=== PATIENT | male | born 1980 | race American Indian/Alaskan Native ===

== ENCOUNTER 2018-03-04 17:35 | Emergency (ER) | payer BC ==
[2018-03-04 17:53] VITALS: BP 117/71; PULSE 62; RESP 16; TEMP 98.8; O2SAT 99
--- NOTE | 2018-03-04 18:16 | C.PDOC ---
Time Seen by Provider: 03/04/18 17:58 Chief Complaint (Nursing): Abdominal Pain History Per: Patient Onset/Duration Of Symptoms: Days, Intermittent Episodes Current Symptoms Are (Timing): Still Present Severity: Mild Location Of Pain/Discomfort: Other (Left groin area) Quality Of Discomfort: Unable To Describe, "Pain", Other (Bulging) Exacerbating Factors: Upright Position Additional History Per: Prior Records Past Medical History Reviewed: Historical Data, Nursing Documentation, Vital Signs Vital Signs: Last Vital Signs Temp 98.8 F 03/04/18 17:51 Pulse 62 03/04/18 17:51 Resp 16 03/04/18 17:51 BP 117/71 03/04/18 17:51 Pulse Ox 99 03/04/18 17:51 - Medical History PMH: Diverticulitis, Hiatal Hernia Surgical History: Appendectomy, Hernia Repair - [facility] Procedures RESECTION OF APPENDIX, PERCUTANEOUS ENDOSCOPIC APPROACH (07/09/15) Family History: States: Unknown Family Hx - Social History Hx Tobacco Use: No Hx Alcohol Use: No Hx Substance Use: No - Immunization History Hx Tetanus Toxoid Vaccination: No Hx Influenza Vaccination: No Hx Pneumococcal Vaccination: No Review Of Systems Except As Marked, All Systems Reviewed And Found Negative. Constitutional: Negative for: Fever, Weakness Cardiovascular: Negative for: Chest Pain Respiratory: Negative for: Shortness of Breath Gastrointestinal: Negative for: Vomiting, Constipation Genitourinary: Negative for: Dysuria, Scrotal Pain Musculoskeletal: Negative for: Back Pain Skin: Negative for: Rash Neurological: Negative for: Weakness, Numbness Physical Exam - Physical Exam Appears: Non-toxic, No Acute Distress Skin: Normal Color, Warm, Dry, No Rash Head: Atraumatic, Normacephalic Eye(s): bilateral: Normal Inspection, PERRL, EOMI Neck: Normal ROM, Supple Gastrointestinal/Abdominal: Soft, No Tenderness, No Distention, Hernia (left inguinal, easily reducible) Back: No CVA Tenderness Male Genital: No Testicular Tenderness, No Testicular Swelling, No Scrotal Swelling Extremity: Normal ROM Neurological/Psych: Oriented x3, Normal Motor, Normal Sensation ED Course And Treatment O2 Sat by Pulse Oximetry: 99 Pulse Ox Interpretation: Normal Disposition Counseled Patient/Family Regarding: Diagnosis, Need For Followup - Disposition Referrals: Luis Grant MD [Staff Provider] - Disposition: HOME/ ROUTINE Disposition Time: 18:17 Condition: STABLE Additional Instructions: Follow up with a General Surgeon for further evaluation and treatment. Return to the ER if you develop vomiting, hernia is stuck, worsening of symptoms or if you have any other concerns. Instructions: Groin Hernia (DC) Forms: [employer] (Albanian) - Clinical Impression Clinical Impression: Left inguinal hernia
== END 2018-03-04 18:20 | disposition home or self-care (01) ==
LOC: C.ER 17:35
DX: K40.90 Unilateral inguinal hernia, without obstruction or gangrene, not specified as recurrent (principal)

== ENCOUNTER 2018-03-12 14:30 | Emergency (ER) | payer BC ==
--- NOTE | 2018-03-12 15:29 | C.PDOC ---
History Of Present Illness 37 y/o male presents to the ER complaining of right ankle pain which began after he was playing basketball and twisted his right ankle last night. Patient states that he has pain with walking. Patient denies having weakness and numbness. Time Seen by Provider: 03/12/18 14:43 Chief Complaint (Nursing): Lower Extremity Problem/Injury History Per: Patient Onset/Duration Of Symptoms: Days Current Symptoms Are (Timing): Still Present Severity: Moderate - Ankle/Foot Description Of Injury: Twisted (right ankle) Past Medical History Reviewed: Historical Data, Nursing Documentation, Vital Signs Vital Signs: Last Vital Signs Temp 99.1 F 03/12/18 16:08 Pulse 58 L 03/12/18 16:08 Resp 20 03/12/18 16:08 BP 122/74 03/12/18 16:08 Pulse Ox 98 03/12/18 16:08 - Medical History PMH: Diverticulitis, Hiatal Hernia Denies: Chronic Kidney Disease Surgical History: Appendectomy, Hernia Repair - [facility] Procedures RESECTION OF APPENDIX, PERCUTANEOUS ENDOSCOPIC APPROACH (07/09/15) Family History: States: No Known Family Hx - Social History Hx Tobacco Use: No Hx Alcohol Use: No Hx Substance Use: No - Immunization History Hx Tetanus Toxoid Vaccination: No Hx Influenza Vaccination: No Hx Pneumococcal Vaccination: No Review Of Systems Except As Marked, All Systems Reviewed And Found Negative. Musculoskeletal: Positive for: Other (right ankle pain) Neurological: Negative for: Weakness, Numbness Physical Exam - Physical Exam Appears: Non-toxic, No Acute Distress Skin: Normal Color, Warm, Dry Head: Atraumatic, Normacephalic Eye(s): bilateral: Normal Inspection Nose: Normal Oral Mucosa: Moist Neck: Supple Extremity: Normal ROM, Tenderness (tenderness to right lateral malleolus), No Calf Tenderness, No Deformity, Swelling (swelling to right lateral mallelous) Neurological/Psych: Oriented x3, Normal Speech ED Course And Treatment O2 Sat by Pulse Oximetry: 97 (RA) Pulse Ox Interpretation: Normal Medical Decision Making Medical Decision Making: Impression: ankle injury Plan: * X-Ray - Right Ankle Progress Xray viewed by me shows no fracture Aircast splint applied by CP and instructed on crutch walking Patient instructed to ice rest and take NSAID for pain Disposition Counseled Patient/Family Regarding: Studies Performed, Diagnosis, Need For Followup, Rx Given - Disposition Referrals: Lucia Rogers MD [Staff Provider] - Disposition: HOME/ ROUTINE Disposition Time: 15:53 Condition: GOOD Additional Instructions: Your xray was normal, no fracture. Please apply ice to area 15 minutes three times a day. Take Motrin as needed for pain every 6 hours, with food to not upset stomach. Follow up with orthopedic if pain persists over one week. Prescriptions: Ibuprofen [Motrin] 600 mg PO Q8 #30 tab Instructions: Ankle Sprain (DC) Forms: [email or web address] (Hebrew) - POA Present On Arrival: None - Clinical Impression Clinical Impression: Ankle sprain - PA / [employer] / Resident Statement MD/DO has reviewed & agrees with the documentation as recorded. - Scribe Statement The provider has reviewed the documentation as recorded by the Scribe Alirio Villarreal Provider Attestation All medical record entries made by the Scribe were at my direction and personally dictated by me. I have reviewed the chart and agree that the record accurately reflects my personal performance of the history, physical exam, medical decision making, and the department course for this patient. I have also personally directed, reviewed, and agree with the discharge instructions and disposition.
--- NOTE | 2018-03-12 16:02 | RAD ---
Date of service: 03/12/2018 PROCEDURE: Right Ankle Radiographs. HISTORY: pain s.p twisting injury COMPARISON: None FINDINGS: BONES: . No cortical fracture. JOINTS: . No osteoarthritis. Ankle mortise maintained. Talar dome intact SOFT TISSUES: Trace faint calcifications anterior soft tissues at the tibiotalar level. Nonspecific findings these may relate to prior trauma. No current donor site appreciated. Mild lateral perimalleolar soft tissue swelling OTHER FINDINGS: None. IMPRESSION: No acute cortical fracture appreciated. Lateral perimalleolar soft tissue swelling
[2018-03-12 16:12] VITALS: BP 122/74; PULSE 58; RESP 20; TEMP 99.1
[2018-03-12 19:36] VITALS: O2SAT 97
== END 2018-03-12 16:17 | disposition home or self-care (01) ==
LOC: C.ER 14:30
DX: S93.401A Sprain of unspecified ligament of right ankle, initial encounter (principal); X50.1XXA Overexertion from prolonged static or awkward postures, initial encounter; Y93.67 Activity, basketball